=== PATIENT | female | born 1950 | race Two or more races ===

== ENCOUNTER 2019-05-27 03:02 | Emergency (ER) | payer OTHER ==
[~2019-05-27] VITALS: Ht 157.5 cm; Wt 81.6 kg
[~2019-05-27 03:02] MED LIST: ADVAIR 2501 DISK W/1 IH; ATROVENT 00.5 MG/2.5 IH; CARDIZEM60 MG PO; CARTIA XT120 MG PO; CLARINEX2.5 MG/5 M PO; NASONEX17 GM NS; PROVENTIL3 ML/2.5 M IH
== END 2019-05-27 20:00 | disposition home or self-care (01) ==
LOC: ER 03:02
DX: K59.09 Other constipation (principal); R10.84 Generalized abdominal pain

== ENCOUNTER 2020-02-24 09:04 | Outpatient (CLI) | payer OTHER | END 2020-02-24 09:36 | disposition home or self-care (01) | LOC: RAD 09:04 → MAMO-SONO 09:04 → RAD 09:36 | PROVIDERS: ATTEND Internal Medicine Cardiovascular Disease | DX: M12.89 Other specific arthropathies, not elsewhere classified, multiple sites (principal) ==

== ENCOUNTER 2020-03-12 12:43 | Outpatient (CLI) | payer OTHER | END 2020-03-12 12:44 | disposition home or self-care (01) | LOC: RAD 12:43 | PROVIDERS: ATTEND Orthopaedic Surgery | DX: R07.89 Other chest pain (principal) ==

== ENCOUNTER 2020-03-12 14:08 | Outpatient (CLI) | payer OTHER | END 2020-03-12 14:14 | disposition home or self-care (01) | LOC: EKG 14:08 | PROVIDERS: ATTEND Orthopaedic Surgery | DX: I10 Essential (primary) hypertension (principal) ==

== ENCOUNTER 2020-08-14 14:40 | Outpatient (CLI) | payer OTHER | END 2020-08-14 16:35 | disposition home or self-care (01) | LOC: RAD 14:40 | PROVIDERS: ATTEND Orthopaedic Surgery | DX: M17.12 Unilateral primary osteoarthritis, left knee (principal); M25.561 Pain in right knee; M25.562 Pain in left knee ==

== ENCOUNTER 2020-10-03 11:00 | Outpatient (CLI) | payer OTHER | END 2020-10-03 11:07 | disposition home or self-care (01) | LOC: RAD 11:00 | PROVIDERS: ATTEND Internal Medicine Cardiovascular Disease | DX: M12.88 Other specific arthropathies, not elsewhere classified, other specified site (principal) ==

== ENCOUNTER 2021-06-18 13:52 | Outpatient (CLI) | payer OTHER | END 2021-06-18 13:58 | disposition home or self-care (01) | LOC: NUCLEAR 13:52 | PROVIDERS: ATTEND Internal Medicine Cardiovascular Disease | DX: M81.0 Age-related osteoporosis without current pathological fracture (principal); E55.9 Vitamin D deficiency, unspecified ==

== ENCOUNTER → 2021-06-18 14:38 | Outpatient (CLI) | payer OTHER | END | disposition home or self-care (01) | LOC: MAMO-SONO 14:38 | PROVIDERS: ATTEND Internal Medicine Cardiovascular Disease | DX: R92.1 Mammographic calcification found on diagnostic imaging of breast (principal); Z12.31 Encounter for screening mammogram for malignant neoplasm of breast ==

== ENCOUNTER → 2021-07-06 | Outpatient (CLI) | payer OTHER | END | disposition home or self-care (01) | LOC: RAD 10:20 | PROVIDERS: ATTEND Orthopaedic Surgery Adult Reconstructive Orthopaedic Surgery | DX: M17.0 Bilateral primary osteoarthritis of knee (principal) ==

== ENCOUNTER 2021-08-06 08:00 | Outpatient (CLI) | payer OTHER | END 2021-08-06 08:30 | disposition home or self-care (01) | LOC: PPH VACUNA 08:00 | PROVIDERS: ATTEND Emergency Medicine Pediatric Emergency Medicine | DX: Z23 Encounter for immunization (principal) ==

== ENCOUNTER 2021-08-06 13:48 | Outpatient (CLI) | payer OTHER | END 2021-08-06 13:51 | disposition home or self-care (01) | LOC: RAD 13:48 | PROVIDERS: ATTEND Orthopaedic Surgery Adult Reconstructive Orthopaedic Surgery | DX: I11.9 Hypertensive heart disease without heart failure (principal) ==

== ENCOUNTER 2021-12-16 13:58 | Outpatient (CLI) | payer OTHER | END 2021-12-16 14:05 | disposition home or self-care (01) | LOC: RAD 13:58 | PROVIDERS: ATTEND Orthopaedic Surgery Adult Reconstructive Orthopaedic Surgery | DX: Z96.651 Presence of right artificial knee joint (principal) ==

== ENCOUNTER 2022-06-05 14:19 | Outpatient (CLI) | payer OTHER | END 2022-06-05 14:26 | disposition home or self-care (01) | LOC: RAD 14:19 | PROVIDERS: ATTEND Internal Medicine Cardiovascular Disease | DX: M12.9 Arthropathy, unspecified (principal) ==

== ENCOUNTER → 2022-12-22 | Outpatient (CLI) | payer OTHER | END | disposition home or self-care (01) | LOC: MAMO-SONO 11:55 | PROVIDERS: ATTEND Internal Medicine Cardiovascular Disease | DX: Z12.31 Encounter for screening mammogram for malignant neoplasm of breast (principal); M16.10 Unilateral primary osteoarthritis, unspecified hip; M54.59 Other low back pain; Z96.651 Presence of right artificial knee joint; N63.11 Unspecified lump in the right breast, upper outer quadrant ==

== ENCOUNTER 2023-02-13 14:37 | Outpatient (CLI) | payer OTHER | END 2023-02-13 14:42 | disposition home or self-care (01) | LOC: RAD 14:37 | PROVIDERS: ATTEND Orthopaedic Surgery Adult Reconstructive Orthopaedic Surgery | DX: I11.9 Hypertensive heart disease without heart failure (principal); S69.91XA Unspecified injury of right wrist, hand and finger(s), initial encounter ==

== ENCOUNTER 2023-12-30 13:15 | Outpatient (CLI) | payer OTHER | END 2023-12-30 13:25 | disposition home or self-care (01) | LOC: MAMO-SONO 13:15 | PROVIDERS: ATTEND Internal Medicine Cardiovascular Disease | DX: N60.11 Diffuse cystic mastopathy of right breast (principal); N60.12 Diffuse cystic mastopathy of left breast; Z12.31 Encounter for screening mammogram for malignant neoplasm of breast; E03.9 Hypothyroidism, unspecified ==

== ENCOUNTER 2024-06-20 09:47 | Outpatient (CLI) | payer OTHER | END 2024-06-20 09:49 | disposition home or self-care (01) | LOC: SONOGRAMA 09:47 | PROVIDERS: ATTEND Pathology Anatomic Pathology & Clinical Pathology | DX: D34 Benign neoplasm of thyroid gland (principal); E07.89 Other specified disorders of thyroid; E03.9 Hypothyroidism, unspecified ==

== ENCOUNTER 2025-07-06 10:38 | Outpatient (CLI) | payer OTHER | END 2025-07-06 10:41 | disposition home or self-care (01) | LOC: NUCLEAR 10:38 | PROVIDERS: ATTEND Internal Medicine Cardiovascular Disease | DX: M81.0 Age-related osteoporosis without current pathological fracture (principal) ==

== ENCOUNTER 2025-07-06 13:48 | Outpatient (CLI) | payer OTHER | END 2025-07-06 13:51 | disposition home or self-care (01) | LOC: RAD 13:48 | PROVIDERS: ATTEND Internal Medicine Cardiovascular Disease | DX: M16.0 Bilateral primary osteoarthritis of hip (principal); M51.379 Other intervertebral disc degeneration, lumbosacral region without mention of lumbar back pain or lower extremity pain; E03.9 Hypothyroidism, unspecified; E04.9 Nontoxic goiter, unspecified; N60.11 Diffuse cystic mastopathy of right breast; N60.12 Diffuse cystic mastopathy of left breast; Z12.31 Encounter for screening mammogram for malignant neoplasm of breast ==